=== PATIENT | female | born 1995 | race Caucasian/White ===

== ENCOUNTER 2017-07-01 16:18 | Inpatient (IN) | payer BC ==
[2017-07-01 16:54] LABS: ADD MAN DIFF? NO
[2017-07-01 16:56] LABS: BASOPHILS % 0.2 % (0.0-2.0); EOSINOPHILS # 0.2 10^3/ul (0.0-0.5); EOSINOPHILS % 2.1 % (0.0-7.0); HEMATOCRIT 32.1 % (37.0-47.0); HEMOGLOBIN 10.7 g/dl (12.0-16.0); LYMPHOCYTES # 1.9 10^3/ul (0.8-2.9); LYMPHOCYTES % 21.7 % (15.0-51.0); MEAN CORPUSCULAR HEMOGLOBIN 29.7 pg (29.0-33.0); MEAN CORPUSCULAR HGB CONC 33.3 g/dl (32.0-37.0); MEAN CORPUSCULAR VOLUME 89.2 fl (82.0-101.0); MEAN PLATELET VOLUME 9.6 fl (7.4-10.4); MONOCYTE # 0.7 10^3/ul (0.3-0.9); MONOCYTES % 7.6 % (0.0-11.0); NEUTROPHIL # 6.1 10^3/ul (1.6-7.5); NEUTROPHILS % 68.1 % (39.0-77.0); PLATELET COUNT 240 10^3/UL (140-415); RED CELL DISTRIBUTION WIDTH 13.2 % (11.5-14.5)
[2017-07-01 16:56] LABS: WHITE BLOOD COUNT 8.9 10^3/ul (4.8-10.8)
[2017-07-01 17:00] LABS: ADD UMIC YES; UR ASCORBIC ACID 20 mg/dL (NEGATIVE); UR BILIRUBIN (Dip) NEGATIVE (NEGATIVE); UR BLOOD (Dip) NEGATIVE (NEGATIVE); UR CLARITY SLIGHTLY CLOUDY (CLEAR); UR COLOR YELLOW (YELLOW); UR GLUCOSE (Dip) NEGATIVE (NEGATIVE); UR KETONES (Dip) NEGATIVE (NEGATIVE); UR LEUKOCYTE ESTERASE (Dip) TRACE Leu/ul (NEGATIVE); UR MUCUS FEW /HPF (NONE SEEN); UR NITRITE (Dip) NEGATIVE (NEGATIVE); UR RBC 2 /HPF (0-5); UR SPECIFIC GRAVITY (Dip) 1.031 (1.003-1.030); UR SQUAMOUS EPITHELIAL CELL FEW /HPF (FEW); UR TOTAL PROTEIN (Dip) 2+ mg/dl (NEGATIVE); UR UROBILINOGEN (Dip) NEGATIVE (NEGATIVE); UR WBC 3 /HPF (0-5)
[2017-07-01 17:20] LABS: ALANINE AMINOTRANSFERASE 39 IU/L (13-69); ALBUMIN 3.2 g/dl (3.3-4.9); ALBUMIN/GLOBULIN RATIO 1.03; ALKALINE PHOSPHATASE 157 IU/L (42-121); ANION GAP 12 (8-16); ASPARTATE AMINO TRANSFERASE 20 IU/L (15-46); BLOOD UREA NITROGEN 15 mg/dl (7-20); CALCIUM 8.9 mg/dl (8.4-10.2); CARBON DIOXIDE 18 mmol/L (21-31); CHLORIDE 113 mmol/L (97-110); CREATININE 0.66 mg/dl (0.44-1.00); GLUCOSE 121 mg/dl (70-220); POTASSIUM 4.2 mmol/L (3.5-5.1); SODIUM 139 mmol/L (135-144); TOTAL PROTEIN 6.3 g/dl (6.1-8.1); URIC ACID 6.8 mg/dl (3.1-7.9)
[2017-07-01] MEDS: ACETAMINOPHEN 325 MG TAB PO (23:49)
[2017-07-02] MEDS ORDERED: LACTATED RINGER'S 1,000 ML IV (13:13)
[2017-07-02] MEDS ORDERED: MISOPROSTOL 200 MCG TAB PR (13:30)
[2017-07-02] MEDS ORDERED: LIDOCAINE 1% (MPF) 30 ML INJ INJ (13:30)
[2017-07-02] MEDS ORDERED: CARBOPROST 250 MCG INJ IM (13:30)
[2017-07-02] MEDS ORDERED: METHYLERGONOVINE 0.2 MG INJ IM (13:30)
[2017-07-02] MEDS ORDERED: BUTORPHANOL 2 MG INJ IV ×2 (13:30)
[2017-07-02] MEDS ORDERED: OXYTOCIN 30 UNITS/LR 500 ML IV ×2 (13:30)
[2017-07-02] MEDS ORDERED: MAGNESIUM SULFATE 4 GM/100 ML 100 ML (14:18)
[2017-07-02 14:44] LABS: ADD MAN DIFF? NO
[2017-07-02] MEDS: LACTATED RINGER'S 1,000 ML IV (14:44)
[2017-07-02 14:46] LABS: BASOPHILS % 0.2 % (0.0-2.0); EOSINOPHILS # 0.2 10^3/ul (0.0-0.5); EOSINOPHILS % 2.4 % (0.0-7.0); HEMATOCRIT 32.2 % (37.0-47.0); HEMOGLOBIN 10.8 g/dl (12.0-16.0); LYMPHOCYTES # 1.9 10^3/ul (0.8-2.9); LYMPHOCYTES % 23.3 % (15.0-51.0); MEAN CORPUSCULAR HEMOGLOBIN 29.7 pg (29.0-33.0); MEAN CORPUSCULAR HGB CONC 33.5 g/dl (32.0-37.0); MEAN CORPUSCULAR VOLUME 88.5 fl (82.0-101.0); MEAN PLATELET VOLUME 10.2 fl (7.4-10.4); MONOCYTE # 0.7 10^3/ul (0.3-0.9); MONOCYTES % 8.1 % (0.0-11.0); NEUTROPHIL # 5.3 10^3/ul (1.6-7.5); NEUTROPHILS % 65.8 % (39.0-77.0); PLATELET COUNT 259 10^3/UL (140-415); RED BLOOD COUNT 3.64 10^6/ul (4.20-5.40); RED CELL DISTRIBUTION WIDTH 13.2 % (11.5-14.5)
[2017-07-02] MEDS: MAGNESIUM SULFATE 4 GM/100 ML 100 ML IV (14:49)
[2017-07-02 15:05] LABS: INR 0.93; PROTIME 12.5 Sec (11.9-14.9)
[2017-07-02 15:06] LABS: ALANINE AMINOTRANSFERASE 29 IU/L (13-69); ALBUMIN/GLOBULIN RATIO 0.88; ALKALINE PHOSPHATASE 153 IU/L (42-121); ANION GAP 12 (8-16); ASPARTATE AMINO TRANSFERASE 21 IU/L (15-46); BLOOD UREA NITROGEN 11 mg/dl (7-20); CALCIUM 8.9 mg/dl (8.4-10.2); CARBON DIOXIDE 16 mmol/L (21-31); CHLORIDE 110 mmol/L (97-110); CREATININE 0.64 mg/dl (0.44-1.00); GLUCOSE 114 mg/dl (70-220); PARTIAL THROMBOPLASTIN TIME 27.5 Sec (25.0-35.0); SODIUM 134 mmol/L (135-144); TOTAL PROTEIN 6.4 g/dl (6.1-8.1); URIC ACID 6.9 mg/dl (3.1-7.9)
[2017-07-02] MEDS: AMPICILLIN 2 GM/NS (PMX) 100 ML IV (15:18)
[2017-07-02] MEDS: MAGNESIUM SULFATE 20 GM/500 ML 500 ML IV (15:23)
[2017-07-02] MEDS: MISOPROSTOL 25 MCG CAPSULE PO ×3 (15:30→23:44)
[2017-07-02 15:35] LABS: HEPATITIS B SURFACE ANTIGEN NEGATIVE (NEGATIVE)
[2017-07-02 16:46] LABS: RAPID PLASMA REAGIN NONREACTIVE (NR)
[2017-07-02] MEDS: AMPICILLIN 1 GM/NS (PMX) 50 ML IV ×2 (17:57→21:37)
[2017-07-02] MEDS: ACETAMINOPHEN 325 MG TAB PO (19:27)
[2017-07-02] MEDS ORDERED: LABETALOL HCL 20MG INJ IV (21:30)
[2017-07-03 00:44] LABS: MAGNESIUM 4.6 mg/dl (1.7-2.5)
[2017-07-03] MEDS: AMPICILLIN 1 GM/NS (PMX) 50 ML IV ×6 (01:53→21:37)
[2017-07-03] MEDS: LACTATED RINGER'S 1,000 ML IV ×3 (01:55→18:27)
[2017-07-03] MEDS: MAGNESIUM SULFATE 20 GM/500 ML 500 ML IV ×2 (01:58→10:26)
[2017-07-03] MEDS: ACETAMINOPHEN 325 MG TAB PO ×3 (03:10→15:23)
[2017-07-03] MEDS: MISOPROSTOL 25 MCG CAPSULE PO ×3 (03:23→11:45)
[2017-07-03 07:25] LABS: MAGNESIUM 5.2 mg/dl (1.7-2.5)
[2017-07-03 12:01] LABS: MAGNESIUM 5.5 mg/dl (1.7-2.5)
[2017-07-03] MEDS: OXYTOCIN 30 UNITS/LR 500 ML IV (15:57)
[2017-07-04] MEDS: AMPICILLIN 1 GM/NS (PMX) 50 ML IV ×5 (02:28→17:18)
[2017-07-04] MEDS: LACTATED RINGER'S 1,000 ML IV ×3 (03:39→19:59)
[2017-07-04] MEDS ORDERED: OXYTOCIN 30 UNITS/LR 500 ML BAG IV (07:00)
[2017-07-04] MEDS ORDERED: OXYTOCIN 30 UNITS/LR 500 ML IV (20:00)
[2017-07-04] MEDS ORDERED: CARBOPROST 250 MCG INJ IM (20:00)
[2017-07-04] MEDS ORDERED: METHYLERGONOVINE 0.2 MG INJ IM (20:00)
[2017-07-04] MEDS ORDERED: MISOPROSTOL 200 MCG TAB PR (20:00)
[2017-07-04] MEDS ORDERED: FENTAnyl 50 MCG/ML VIAL (20:15)
[2017-07-04] MEDS ORDERED: morphine SULFATE/PF (10 MG/10 ML) INJ (20:15)
[2017-07-04] MEDS ORDERED: DEXAMETHASONE 4 MG/ML 1 ML INJ (20:44)
[2017-07-04] MEDS ORDERED: ONDANSETRON 4 MG INJ (20:44)
[2017-07-04] MEDS ORDERED: ONDANSETRON 4 MG INJ IV (21:30)
[2017-07-04] MEDS ORDERED: NALOXONE (0.4 MG/ML) INJ IV (21:30)
[2017-07-04] MEDS ORDERED: ZOLPIDEM 5 MG TAB PO (21:30)
[2017-07-04] MEDS ORDERED: morphine 2 MG INJ IV (21:30)
[2017-07-04] MEDS ORDERED: DIPHENHYDRAMINE 50 MG INJ IV (21:30)
[2017-07-04] MEDS: CEFAZOLIN 3 GM in DEXTROSE 5% 100 ML IV (22:05)
[2017-07-04] MEDS: morphine 2 MG INJ IV (23:44)
[2017-07-04] MEDS: OXYTOCIN 30 UNITS/LR 500 ML IV (23:51)
[2017-07-05] MEDS: KETOROLAC 30 MG INJ IV ×4 (00:16→17:57)
[2017-07-05] MEDS: LACTATED RINGER'S 1,000 ML IV ×4 (00:59→23:47)
[2017-07-05] MEDS ORDERED: CARBOPROST 250 MCG INJ IM (01:00)
[2017-07-05] MEDS ORDERED: OXYTOCIN 30 UNITS/LR 500 ML IV (01:00)
[2017-07-05] MEDS ORDERED: MISOPROSTOL 200 MCG TAB PR (01:00)
[2017-07-05] MEDS: OXYTOCIN 30 UNITS/LR 500 ML IV (03:49)
[2017-07-05 08:43] LABS: ADD MAN DIFF? NO
[2017-07-05] MEDS: SENNA/DOCUSATE NA (8.6MG/50MG) TAB PO ×2 (08:49→21:40)
[2017-07-05 08:54] LABS: WHITE BLOOD COUNT 14.8 10^3/ul (4.8-10.8)
[2017-07-05 08:54] LABS: BASOPHILS % 0.1 % (0.0-2.0); HEMOGLOBIN 9.3 g/dl (12.0-16.0); LYMPHOCYTES # 1.4 10^3/ul (0.8-2.9); LYMPHOCYTES % 9.5 % (15.0-51.0); MEAN CORPUSCULAR HGB CONC 34.4 g/dl (32.0-37.0); MEAN CORPUSCULAR VOLUME 87.1 fl (82.0-101.0); MEAN PLATELET VOLUME 9.9 fl (7.4-10.4); MONOCYTE # 0.8 10^3/ul (0.3-0.9); MONOCYTES % 5.4 % (0.0-11.0); NEUTROPHIL # 12.5 10^3/ul (1.6-7.5); NEUTROPHILS % 84.5 % (39.0-77.0); PLATELET COUNT 203 10^3/UL (140-415); RED CELL DISTRIBUTION WIDTH 13.2 % (11.5-14.5)
[2017-07-05] MEDS: IBUPROFEN 800 MG TAB PO (21:40)
[2017-07-05] MEDS: FERROUS SULFATE (EC) 325 MG TAB PO (21:40)
[2017-07-05] MEDS: LANOLIN 7 GM TUBE TOP (23:48)
[2017-07-06] MEDS: OXYCODONE/ACETAMINOPHEN (5/325) TAB PO ×3 (04:52→21:56)
[2017-07-06] MEDS: IBUPROFEN 800 MG TAB PO ×3 (05:43→21:55)
[2017-07-06] MEDS: LACTATED RINGER'S 1,000 ML IV ×2 (06:28→16:59)
[2017-07-06] MEDS: INFLUENZA VIRUS VACCINE 0.5 ML (DISPENSING) IM* (09:00)
[2017-07-06] MEDS: FERROUS SULFATE (EC) 325 MG TAB PO ×3 (09:16→21:54)
[2017-07-06] MEDS: SENNA/DOCUSATE NA (8.6MG/50MG) TAB PO ×2 (09:16→21:55)
[2017-07-07] MEDS: LACTATED RINGER'S 1,000 ML IV ×2 (00:59→06:37)
[2017-07-07] MEDS: IBUPROFEN 800 MG TAB PO (05:50)
[2017-07-07] MEDS: OXYCODONE/ACETAMINOPHEN (5/325) TAB PO (05:51)
[2017-07-07] MEDS: FERROUS SULFATE (EC) 325 MG TAB PO (09:30)
[2017-07-07] MEDS: SENNA/DOCUSATE NA (8.6MG/50MG) TAB PO (09:30)
[2017-07-07] MEDS: DIPHTH/TET/ACEL PERTUSS (ADULT) 0.5 ML VIAL IM* (11:06)
== END 2017-07-07 13:09 | disposition home or self-care (01) | DRG 766 ==
LOC: OBT 16:18 → L-D 07-02 14:04 → PP1 07-05 00:24 → L-D 16:19 → OBT 18:30 → L-D 07-04 23:14 → PP1 20:12
PROC: 10D00Z1 Extraction of Products of Conception, Low, Open Approach (ICD-10-PCS; principal; 2017-07-04 20:15)
DX: O14.14 Severe pre-eclampsia complicating childbirth (principal); O62.1 Secondary uterine inertia; Z3A.36 36 weeks gestation of pregnancy; Z37.0 Single live birth; Z23 Encounter for immunization
CPT/HCPCS: 76815; 76818; 80053; 81001; 83735; 84560; 85025; 85610; 85730; 86592; 86850; 86900; 86901; 87340; 90686; 90715; 94760; 99464

== ENCOUNTER 2018-01-02 17:30 | Emergency (ER) | payer SELFPAY, BC | END 2018-01-02 20:14 | disposition left against medical advice (07) | LOC: FTE 17:30 | DX: Z53.21 Procedure and treatment not carried out due to patient leaving prior to being seen by health care provider (principal) ==